=== PATIENT | female | born 1970 | race Caucasian/White ===

== ENCOUNTER 2024-01-24 15:19 | Outpatient (OUT) | payer OTHER, SELFPAY ==
--- NOTE | 2024-01-24 | MM_ITS ---
Patient Name: DREW LALA MR#: [id number] : 1970 Exam Date: 01/24/2024 Ordering Doctor: DR Colby Gutierrez . RADIOLOGY REPORT PROCEDURE: MM TOMOSYNTHESIS SCREENING BI COMPARISON: MG MAMM SCREEN 3D AYESHA CAD, 07/07/2021. MG MAMM SCREEN 3D AYESHA CAD, 08/10/2022. INDICATIONS: Ayesha Screening Mammogram Calculator Name NCI Breast Cancer Risk Assessment Tool 5 Year Breast Cancer Risk 0.80% Lifetime Breast Cancer Risk 6.10% Personal Breast Cancer No Personal Ovarian Cancer No Treatments None Family Cancers Grandmother-paternal with breast cancer at age 60. LOCATION: [facility] BREAST COMPOSITION: The breasts are extremely dense, which lowers the sensitivity of mammography. FINDINGS: DIAGNOSTIC CATEGORY 1--NEGATIVE. NO CHANGE FROM COMPARISON ASSESSMENT. Scattered benign-appearing lymph nodes are present. RIGHT BREAST: No significant suspicious finding. LEFT BREAST: No significant suspicious finding. RECOMMENDATIONS: ROUTINE MAMMOGRAM AND CLINICAL EVALUATION IN 12 MONTHS. PLEASE NOTE: A NORMAL MAMMOGRAM DOES NOT EXCLUDE THE POSSIBILITY OF BREAST CANCER. A CLINICALLY SUSPICIOUS PALPABLE LUMP SHOULD BE BIOPSIED. Dictated by: Reginald Kauffman MD on 01/25/2024 at 07:45 Approved by: Reginald Kauffman MD on 01/25/2024 at 07:48
== END 2024-01-24 15:20 | disposition home or self-care (01) ==
LOC: MAMMO 15:20
PROVIDERS: PCP Family Medicine; Visit Provider Obstetrics & Gynecology
DX: Z12.31 Encounter for screening mammogram for malignant neoplasm of breast (principal); Z80.3 Family history of malignant neoplasm of breast
CPT/HCPCS: 77063; 77067

== ENCOUNTER 2025-01-31 15:57 | Outpatient (OUT) | payer OTHER, SELFPAY ==
--- OUTSIDE RECORDS SUMMARY | 2024-05-04 14:52 | XMS_ITS ---
Author Name Auto Generated Organization [facility] Care Team Providers Care Agent Name Role Phone Mellissa Thakkar Referring Unavailable Rito Hollis Primary Care Unavailable Mellissa Thakkar Attending Unavailable Rito Hollis Primary Care Unavailable Wenceslao Sandhu Admitting Unavailable Wenceslao Sandhu Attending Unavailable PROBLEMS No Problem Records Found PROCEDURES No Procedure Records Found RESULTS MEDICATION MANAGEMENT Observed: 09/18/19 7:37 AM Status: C Source: [facility] From: Meme Mondragon RN ([facility] To: Rito Hollis DO; Sent: 09/18/2024 07:37:59 EST Subject: FW: Medication Management Due Date/Time: 09/19/2024 05:46:00 EST Caller Name: DREW LALA; Caller Number: , From: [place] [id number] To: Rito Hollis DO Sent: September 18, 2024 4:46:43 AM TABLE GAMES MANAGER Subject: Medication Management Due: September 19, 2024 12:11:19 AM TABLE GAMES MANAGER On Hold Pending Signature Dispensed Drug: atorvastatin (atorvastatin 20 mg oral tablet), Take 1 tablet by mouth once daily Quantity: 90 tab(s) Days Supply: 90 Refills: 0 Substitutions Allowed Notes from Pharmacy: From: Rito Hollis DO To: [place] [id number] Sent: 09/18/2024 07:40:23 EST Subject: FW: Medication Management Submitted: Complete:atorvastatin (atorvastatin 20 mg oral tablet) Signed by Rito Hollis DO 09/18/2024 07:40:00 EST Approved with modifications: atorvastatin (Atorvastatin Calcium 20 MG Oral Tablet) Take 1 tablet by mouth once daily Qty: 90 tab(s) Days Supply: 90 Refills: 3 Substitutions Allowed Route To Pharmacy - [place] [id number] MEDICATION MANAGEMENT Observed: 06/21/20 24 7:27 AM Status: F Source: [facility] Entered by Meme Mondragon RN on June 21, 2024 07:27:23 EDT From: Meme Mondragon RN To: [place] [id number] Sent: 06/21/2024 07:27:23 EDT Subject: Medication Management Submitted: Complete:atorvastatin (atorvastatin 20 mg oral tablet) Signed by Meme Mondragon RN 06/21/2024 07:27:00 EDT Approved with modifications: atorvastatin (Atorvastatin Calcium 20 MG Oral Tablet) Take 1 tablet by mouth once daily Qty: 90 tab(s) Days Supply: 90 Refills: 0 Substitutions Allowed Route To Pharmacy - [facility] Signed by Meme Mondragon RN From: [facility] To: Rito Hollis DO Sent: June 21, 2024 4:45:32 AM CDT Subject: Medication Management Due: June 22, 2024 12:11:42 AM CDT On Hold Pending Signature Dispensed Drug: atorvastatin (atorvastatin 20 mg oral tablet), Take 1 tablet by mouth once daily Quantity: 90 tab(s) Days Supply: 90 Refills: 0 Substitutions Allowed Notes from Pharmacy: PATIENT HANDOUT Observed: 05/04/2024 4:00 PM Status: C Source: [facility] Patient Education Materials Follows: ED PATIENT SUMMARY Observed: 05/04/2024 4:00 PM Status: C Source: [facility] ? 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 It is important for you to follow up with a doctor, nurse practitioner, or physician?s internet marketing assistant for ongoing care. If your symptoms become worse or you do not improve as expected and you are unable to reach your usual health care provider, you should return to the Emergency Department, we are available 24 hours a day. For those patients who have received Radiology results, the interpretation of your X-ray as given to you by our Emergency Department physician is only a preliminary report. The Radiologist will review your films and if there is a change in the diagnosis you will be notified by phone. Please make sure you have provided a working phone number so we can reach you if necessary. In the event that you had a lab culture while you were a patient in the Emergency Department, you will be notified by phone if there is a need to change your antibiotic. Please make sure you have provided a working phone number so we can reach you if necessary. [facility] Emergency Department has provided you with a complete list of medications post discharge. Please inform your team primary care physician/provider of your visit and for further instruction on these medications. Any specific questions regarding your chronic medications and dosages should be discussed with your primary care physician(s) and/or pharmacist. Medications to Continue That Have Not Changed Other Medications atorvastatin (atorvastatin 20 mg oral tablet) 1 tab(s) Oral (given by mouth) every day. Refills: 3. Visit Information Visit Diagnosis: Diagnoses This Visit Medical screening exam ([id number]) If you received any narcotics, sedation, or any other medication that causes drowsiness for the next 24 hours, unless otherwise directed: ? Do not drive a car. ? Do not operate machinery such as power tools, lawn mowers, drills, sewing machines, or stoves ? Avoid alcoholic beverages and drugs for allergies, nerves, or sleep ? Do not make important personal or business decisions or sign any legal documents Reason for Visit: Medical screening [place] crain Allergies: Substance Reaction Symptoms Type Comments penicillin hives Drug Vital Signs: Vitals and Measurements this Visit (last charted value for your 05/04/2024 visit) Vital Signs This Visit Temperature Oral: 36.4 DegC Apical Heart Rate: 62 bpm Respiratory Rate: 18 br/min Systolic Blood Pressure: 129 mmHg Diastolic Blood Pressure: 89 mmHg SpO2: 99 % Blood Pressure Method: Automatic Measurements This Visit Height/Length Measured: 167.64 cm Weight Measured: 104.33 kg Weight Dosin.330 kg Body Mass Index: 37.12 kg/m2 BSA Measured: 2.2 m2 Problems List: Problem Onset Comments Elevated BP without diagnosis of hypertension Family hx of aortic aneurysm Family hx-stroke Hyperlipidemia Leg pain Wellness examination Major Tests and Procedures: The following procedures and tests were performed during your ED visit. Laboratory Urinalysis Standard Urine, Collected, RT collect, 05/04/24 15:15:00 EDT, by MHPATIENT, Stop date 05/04/24 15:15:00 EDT, Lab Collect, Urine Radiology Cardiology Viruses or Bacteria What?s got you sick? Antibiotics only treat bacterial infections. Viral illnesses cannot be treated with antibiotics. When an antibiotic is not prescribed, ask your healthcare professional for tips on how to relieve symptoms and feel better. Usual Cause Illness Viruses Bacteria Antibiotic Needed Cold/Runny Nose NO Bronchitis/Chest Cold (in otherwise healthy children and adults) NO Whooping Cough Yes Flu NO Strep Throat Yes Sore Throat (except strep) NO Fluid in the middle ear (otitis media with effusion) NO Urinary Tract Infection Yes Antibiotics Aren?t Always the Answer www.cdc.gov/getsmart GET SMART Know When Antibiotics Work U.S. Department of Health and Human Services Centers for Disease Control and Prevention May 2014 ED CLINICAL SUMMARY Observed: 05/04/2024 4:00 PM Status: C Source: [facility] ? 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; TA BOX PACKER PHYSICAL Arrival: 05/04/2024 14:52:54 Discharge: 05/04/2024 15:35:00 LOS: 000 00:43 Check In: 05/04/2024 14:52:54 Checkout: 05/04/2024 15:35:00 Address: [address] [place] [id number] PCP: Rito Hollis DO PROVIDER INFORMATION Provider Role Assigned Unassigned Wenceslao Sandhu PA-C ED PA 05/04/2024 14:59:41 Rossana Holbrook MA ED Nurse 05/04/2024 15:56:35 VITALS INFORMATION Vital Sign Triage Latest Temperature Tympanic Temperature Temporal Artery Pulse Rate O2 Sat 99 % 99 % Respiratory Rate Blood Pressure /89 mmHg /89 mmHg MEDICAL INFORMATION Medications Given: Allergy Information: penicillin PHYSICIAN DOCUMENTATION DISCHARGE INFORMATION: Discharge Disposition: Home Discharge Location: Home PATIENT EDUCATION INFORMATION Instructions: Follow-Up: DIAGNOSIS: Patient Understands: Yes - Patient/family/caregiver verbalizes understanding of instructions given Comment: URGENT CARE RECORD Observed: 05/04/2024 3:51 PM Status: C Source: [facility] ? Urgent C are [address] [place] [address] PATIENT DISCHARGE INSTRUCTIONS Patient Information Name: DREW LALA Age: 54 Years Date of : 1970 Reason For Visit: TA BOX PACKER PHYSICAL Arrival Time: 05/04/2024 14:52:54 Primary Care Physician: Rito Hollis DO Attending Physician: Wenceslao Sandhu PA-C Comment: Visit Diagnosis: Diagnoses This Visit No Visit Diagnoses Documented If you received any narcotics, sedation, or any other medication that causes drowsiness for the next 24 hours, unless otherwise directed: ? Do not drive a car. ? Do not operate machinery such as power tools, lawn mowers, drills, sewing machines, or stoves ? Avoid alcoholic beverages and drugs for allergies, nerves, or sleep ? Do not make important personal or business decisions or sign any legal documents Medication Information: The exam and treatment you received today in the [facility] Urgent Care were for an urgent problem and are not intended as complete care. It is important for you to follow up with a doctor, nurse practitioner, or physician?s internet marketing assistant for ongoing care. If your symptoms become worse or you do not improve as expected and you are unable to reach your usual health care provider, you should return to the Emergency Department, we are available 24 hours a day. For those patients who have received Radiology results, the interpretation of your X-ray as given to you by our Urgent Care physician is only a preliminary report. The Radiologist will review your films and if there is a change in the diagnosis you will be notified by phone. Please make sure you have provided a working phone number so we can reach you if necessary. In the event that you had a lab culture while you were a patient in the Urgent Care, you will be notified by phone if there is a need to change your antibiotic. Please make sure you have provided a working phone number so we can reach you if necessary. [facility] Urgent Care has provided you with a complete list of medications post discharge. Please inform your team primary care physician/provider of your visit and for further instruction on these medications. Any specific questions regarding your chronic medications and dosages should be discussed with your primary care physician(s) and/or pharmacist. Medications to Continue That Have Not Changed Other Medications atorvastatin (atorvastatin 20 mg oral tablet) 1 tab(s) Oral (given by mouth) every day. Refills: 3. Visit Information Allergies: Substance Reaction Symptoms Type Comments penicillin hives Drug Vital Signs: Vitals and Measurements this Visit (last charted value for your 05/04/2024 visit) No vitals and measurements documented Problems List: Problem Onset Comments Elevated BP without diagnosis of hypertension Family hx of aortic aneurysm Family hx-stroke Hyperlipidemia Leg pain Wellness examination Patient Education Viruses or Bacteria What?s got you sick? Antibiotics only treat bacterial infections. Viral illnesses cannot be treated with antibiotics. When an antibiotic is not prescribed, ask your healthcare professional for tips on how to relieve symptoms and feel better. Usual Cause Illness Viruses Bacteria Antibiotic Needed Cold/Runny Nose NO Bronchitis/Chest Cold (in otherwise healthy children and adults) NO Whooping Cough Yes Flu NO Strep Throat Yes Sore Throat (except strep) NO Fluid in the middle ear (otitis media with effusion) NO Urinary Tract Infection Yes Antibiotics Aren?t Always the Answer www.cdc.gov/getsmart GET SMART Know When Antibiotics Work U.S. Department of Health and Human Services Centers for Disease Control and Prevention May 2014 UA STANDARD Collected: 05/04/2024 3:15 PM Status: F Source: [facility] TYPE CODE TESTS RESULT OUT OF RANGE REFERENCE UNITS LAB 70186795([facility] ) Urine Source Clean Catch LAB 9513785([facility]) UA Clarity CLEAR CLEAR LAB 5494869(INC) UA Color Yellow LAB 7748611(INC) UA pH 6.0 5-8 LAB 8608954([facility]) UA Spec Grav <=1.005 1.001-1.035 LAB 9078251(INC) UA Glucose NEGATIVE LAB 8017703(LOINC) UA Bilirubin NEGATIVE LAB 3056889(LOINC) UA Blood NEGATIVE NEGATIVE LAB 9865449(LOINC) UA Ketones NEGATIVE LAB 2814263([facility]) UA Leuk Est TRACE Abnormal NEGATIVE LAB 3520710(LOINC) UA Nitrite NEGATIVE NEGATIVE LAB 5106529(LOINC) UA Protein NEGATIVE NEGATIVE LAB 6881021(LOINC) UA Urobilinogen 0.2 0.2-1.0 m g/dL LAB 3035355063([facility]) Breakpoint UA Performed By: #### [id number] #### [facility] (DEFAULT) [address] [place] [address] URGENT CARE NOTE- PROVIDER Observed: 3:04 PM Status: F Source: [facility] Patient: DREW LALA Age: 54 years Sex: FEMALE : 1970 Associated Diagnoses: None Author: Wenceslao Sandhu PA-C History of Present Illness This patient is seen today for a T8 physical exam. 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 Please see scanned documents. GENERAL: Awake, alert and oriented to person, place and situation. Well nourished, well developed, non toxic, NAD. EYES: Pupils equal, round and react to light. EOMI. Better than 20/40 vision each eye. ENMT: Ears: TM's and external canals with normal inspection bilaterally. Hearing at 40dB is in tact bilaterally. Nose: normal inspection. Mouth: oral mucosa is pink and still moist. Throat: normal inspection. Normal hearing with audiometer. NECK: No bony TTP, normal range of motion, no meningismus, trachea is midline. No anterior or posterior lymphadenopathy. CARDIOVASCULAR: Regular rate and rhythm. +S1 +S2. No murmurs or rubs. RESPIRATORY: Clear to auscultation bilaterally without rales, rhonchi or wheeze. ABDOMEN: Soft, completely non tender, abdomen is non distended, without rebound tenderness, guarding or peritoneal signs. Bowel sounds present times 4 quadrants and normoactive. No bruits. No masses. No CVA TTP. BACK: There is no bony TTP, no scoliosis, full ROM without difficulty. EXTREMITIES: No cyanosis, clubbing or edema. Good muscle tone, moves all extremities fully. Squat normal. SKIN: Normal inspection, no visualized rash. NEUROLOGIC: Light touch sensation in tact, strength 5/5 in bilateral upper and lower extremities. Steady gait. Normal mentation. No focal neurological deficits appreciated. PSYCHIATRIC: Mood and affect appropriate. Health Status Allergies: Nonallergic Reactions (Selected) Severity Not Documented Penicillin- Hives.. Medications: (Selected) Prescriptions Prescribed atorvastatin 20 mg oral tablet: 1 tab(s), PO, Daily, 90 tab(s), 3 Refill(s). Past Medical/ Family/ Social History Medical history: No active or resolved past medical history items have been selected or recorded.. Surgical history: No active procedure history items have been selected or recorded.. Family history: Aortic aneurysm Mother Congestive heart failure Mother . Social history: Social & Psychosocial Habits Alcohol 08/30/2018 Alcohol Use: Current 05/17/2023 Alcohol Use: Current Frequency: 1-2 times per week Employment/School 08/30/2018 Status: Employed Description: [employer] Exercise 08/30/2018 Times per week: 5-6 times/week Exercise type: Running Home/Environment 08/30/2018 Lives with: Children, Spouse Living situation: Home/Independent Nutrition/Health 08/30/2018 Caffeine intake amount: Soda-1 serving Substance Use 05/17/2023 Substance use: Never Tobacco 05/17/2023 Smoking tobacco use: Never tobacco user Electronic Cigarette/Vaping 05/17/2023 Electronic Cigarette Use: Never . Problem list: Active Problems (6) Elevated BP without diagnosis of hypertension Family hx of aortic aneurysm Family hx-stroke Hyperlipidemia Leg pain Wellness examination . [Electronically Signed on: 05/04/2024 15:25 EDT] Wenceslao Sandhu PA-C[Verified on: 05/04/2024 15:25 EDT] Wenceslao Sandhu PA-C OUTSIDE RECORDS Observed: 05/04/2024 2:52 PM Status: F Source: [facility] [id number] PROGRESS NOTE - NURSE Observed: 03/16/20 5:00 PM Status: F Source: [facility] Patient presented into offic e, asked for her blood pressure to be checked Left arm: 130/82 she asked for a hard copy to be printed for her insurance-printed [Electronically Signed on: 03/16/2023 17:03 EDT] Gill Nelson LPN[Verified on: 03/16/2023 17:03 EDT] Gill Nelson LPN ALLERGIES DATE TYPE / CODE NAME / CODE REACTION SEVERITY SOURCE Drug/[id number](SNOMED CT) penicillin hives [facility] ENCOUNTERS ADMIT/DISCHARGE ACCOUNT NUMBER ADMITTING ENCOUNTER CLASS LOCATION SOURCE 05/04/2024/ 4 [id number] Wenceslao Sandhu [facility] URGENT CARERoom: UCBed: [address] [facility] 03/16/2023/ 3 [id number] Ambulatory [facility] CTRBuilding: [facility] PAYERS ENCOUNTER GUARANTOR PAYER SUBSCRIBER SOURCE 03/16/2023 DERW Waterman SHANTB: [id number] [place], [place] [address]Snf: () Primary Insurance:SELF PAYPolicy Number: Effective Date:[id number] Name:Self Pay DREW M JANINE: [id number] [place], [place] [address]Nvj: () () [facility]
--- NOTE | 2025-01-31 | MM_ITS ---
Patient Name: DREW LALA MR#: [id number] : 1970 Exam Date: 01/31/2025 Ordering Doctor: DR AMOS CALVO . RADIOLOGY REPORT PROCEDURE: MM TOMOSYNTHESIS SCREENING BI COMPARISON: MM TOMOSYNTHESIS SCREENING BI, 01/24/2024. MG MAMM SCREEN 3D AYESHA CAD, 08/10/2022. MG MAMM SCREEN 3D AYESHA CAD, 07/07/2021. MG MAMM AYESHA SCRN W CAD DIG, 03/12/2013. INDICATIONS: Screening Mammogram Calculator Name NCI Breast Cancer Risk Assessment Tool 5 Year Breast Cancer Risk 0.80% Lifetime Breast Cancer Risk 6.00% Personal Breast Cancer No Personal Ovarian Cancer No Treatments None Family Cancers Grandfather-maternal with lung cancer at age 85; Mother with skin cancer at age 70; Grandmother-paternal with breast cancer at age 60. LOCATION: [facility] BREAST COMPOSITION: The breasts are heterogeneously dense,which may obscure small masses. FINDINGS: RIGHT BREAST: No significant suspicious finding. Benign-appearing lymph nodes in the along with chest wall. LEFT BREAST: No significant suspicious finding. Benign-appearing lymph nodes in the along the chest wall . there is a punctate benign-appearing calcification. DIAGNOSTIC CATEGORY 2--BENIGN FINDING: RECOMMENDATIONS: ROUTINE MAMMOGRAM AND CLINICAL EVALUATION IN 12 MONTHS. PLEASE NOTE: A NORMAL MAMMOGRAM DOES NOT EXCLUDE THE POSSIBILITY OF BREAST CANCER. A CLINICALLY SUSPICIOUS PALPABLE LUMP SHOULD BE BIOPSIED. Dictated by: Lul Troy MD on 02/01/2025 at 08:03 Approved by: Lul Troy MD on 02/01/2025 at 08:07
== END 2025-01-31 15:58 | disposition home or self-care (01) ==
PROVIDERS: PCP Family Medicine; Visit Provider Obstetrics & Gynecology
DX: Z12.31 Encounter for screening mammogram for malignant neoplasm of breast (principal); Z80.1 Family history of malignant neoplasm of trachea, bronchus and lung; Z80.3 Family history of malignant neoplasm of breast; Z80.8 Family history of malignant neoplasm of other organs or systems
CPT/HCPCS: 77063; 77067